=== PATIENT | male | born 1980 | race Two or more races ===

== ENCOUNTER 2019-09-13 12:22 | Inpatient (IN) | payer MEDICAID ==
[~2019-09-13] VITALS: Ht 182.9 cm; Wt 117.0 kg
[2019-09-13] MEDS ORDERED: VANCOMYCIN 1 GM in IV D5W 250 ML IV ONE (13:00)
[2019-09-13] MEDS ORDERED: IV NS 0.9% 1,000 ML BAG IV ONE (13:00)
[2019-09-13 13:08] LABS: BASOPHILS # (AUTO) 0.1 /CMM (0.0-0.2); BASOPHILS % (AUTO) 0.4 % (0.0-2.0); EOSINOPHILS % (AUTO) 0.4 % (0.0-6.0); HEMATOCRIT 36 % (39-51); HEMOGLOBIN 11.6 g/dL (13.5-17.5); LYMPHOCYTES # (AUTO) 1.4 /CMM (0.8-4.8); LYMPHOCYTES % (AUTO) 8.3 % (20.0-44.0); MEAN CORPUSCULAR HGB CONC 32 g/dl (31.0-36.0); MEAN CORPUSCULAR VOLUME 87 fL (80-96); MONOCYTES # (AUTO) 0.9 /CMM (0.1-1.30); MONOCYTES % (AUTO) 5.5 % (2.0-12.0); NEUTROPHILS # (AUTO) 14.1 /CMM (1.8-8.9); NEUTROPHILS % (AUTO) 85.4 % (43.0-81.0); PLATELET COUNT (AUTO) 447 /CMM (150-450); RED BLOOD CELL COUNT(AUTO) 4.14 MIL/uL (4.5-6.0); WHITE BLOOD COUNT (AUTO) 16.5 K/uL (4.3-11.0)
--- NOTE | 2019-09-13 13:10 | NUR ---
c/o worsening r foot pain, possible infection x 3 weeks. PT AAOX4, VSS. RR EVEN & UNLABORED. DENIES CP, SOB, DIZZINESS, N/V AT THIS TIME. PT SEEN & EVAL'D BY DR. LOMBARDO. MEDICATED ORDERED, PT FABRIZIO WELL. WILL CONT TO MONITOR.
[2019-09-13 13:22] LABS: ALANINE AMINOTRANSFERASE 16 U/L (12-78); ALBUMIN 2.8 g/dL (3.4-5.0); ALKALINE PHOSPHATASE 95 U/L (46-116); ASPARTATE AMINOTRANSFERASE 8 U/L (15-37); BILIRUBIN,DIRECT 0.2 mg/dL (0.0-0.2); BILIRUBIN,TOTAL 0.7 mg/dL (0.2-1.0); CALCIUM, SERUM 9.3 mg/dL (8.5-10.1); CARBON DIOXIDE 28 mmol/L (21-32); CHLORIDE 100 mmol/L (98-107); CREATININE 1.2 mg/dL (0.6-1.3); GLUCOSE 234 mg/dL (74-106); POTASSIUM 3.7 mmol/L (3.5-5.1); SODIUM SERUM 137 mmol/L (136-145); TOTAL PROTEIN, SERUM 9.1 g/dL (6.4-8.2); UREA NITROGEN, BLOOD 15 mg/dL (7-18)
--- NOTE | 2019-09-13 13:41 | NUR ---
CALLED NURSING SUP FOR M/S BED.
--- NOTE | 2019-09-13 13:42 | NUR ---
CALLED [facility].
--- NOTE | 2019-09-13 13:45 | NUR ---
NURSING SUP GAVE M/S BED 314-1.
[2019-09-13] MEDS ORDERED: NPH,100V SQ (13:49)
[2019-09-13] MEDS ORDERED: ONDANSETRON HCL/PF 4 MG/2 ML VIAL IVP PRN (14:00)
[2019-09-13] MEDS ORDERED: ACETAMINOPHEN 325 MG TABLET PO PRN (14:00)
[2019-09-13] MEDS ORDERED: ZOLPIDEM TARTRATE 5 MG TABLET PO PRN (14:00)
[2019-09-13] MEDS ORDERED: MAGNESIUM HYDROXIDE 30 ML UDC PO PRN (14:00)
[2019-09-13] MEDS ORDERED: DEXTROSE 50%-WATER 50 ML DISP.SYRIN IV PRN (14:00)
[2019-09-13] MEDS ORDERED: HYDROCODONE/APAP 5/325MG 1 EACH TABLET PO PRN (14:00)
[2019-09-13] MEDS ORDERED: MAG HYDROX/AL HYDROX/SIMETH 30 ML UDC PO PRN (14:00)
[2019-09-13] MEDS ORDERED: Z GUARD REMEDY 2 OZ OINT TP PRN (14:00)
--- NOTE | 2019-09-13 14:28 | NUR ---
REPORT GIVEN TO GABBY MORA FOR AVTAR.
[2019-09-13] MEDS ORDERED: FEE PK DOSING 1 MIN EA MC ONE (14:38)
--- NOTE | 2019-09-13 14:40 | NUR ---
RECEIVED PATIENT FROM ER, DIAGNOSIS OF RIGHT FOOT CELLULITIS POSSIBLE OSTEOMYELITIS. PATIENT IS A/OX4, ABLE TO MAKE NEEDS KNOWN. AMBULATORY, AMBULATE FROM GURNEY TO BED. NOT IN ANY FORM OF DISTRESS. TOLERATING ROOM AIR SATTING AT 98%. DENIED PAIN OR DISCOMFORT AT THIS TIME. REFUSED BODY CHECKED AND SKIN ASSESSMENT. PER PATIENT HE DOESNT HAVE ANY OTHER OPEN WOUNDS, JUST SWELLING AND FOUL ODOR ON RIGHT FOOT, PER PATIENT HE JUST HAD HIS RIGHT BIG TOE AMPUTATED ON JULY THIS 2018. PHOTOS TAKEN ON RIGHT FOOT. REFUSED TO WEAR HOSPITAL GOWN, STILL WEARING HIS REGULAR CLOTHES. SITUATED PATIENT IN THE ROOM. BELONGINGS CHECKED BY RUPAL SCHULTZ AND NOTED ON BELONGINGS FORM. TAUGHT HOW TO USE THE CALL LIGHT AND INSTRUCTED TO CALL FOR ASSISTANCE. KEPT PATIENT SAFE AND COMFORTABLE. BED IN LOW/LOCKED POSTIION, SIDERAIL UPX2, CALL LIGHT IN REACH. WILL CONTINUE TO MONITOR ACCORDINGLY.
[2019-09-13] MEDS ORDERED: CEFTRIAXONE 1 G in IV D5W 50 ML IV SCH (15:00)
[2019-09-13] MEDS: IV 1/2NS 1000 ML 1,000 ML IV PRN (15:54)
[2019-09-13 16:00] VITALS: BP 124/76
[2019-09-13] MEDS: BLOOD SUGAR DIAGNOSTIC 1 EACH STRIP IN SCH ×2 (17:36→21:25)
[2019-09-13] MEDS: INSULIN REGULAR, HUMAN 100 UNIT/ML 3 ML VIAL SQ PRN (17:37)
--- NOTE | 2019-09-13 19:10 | NUR ---
RN CLOSING NOTES PATIENT IN STABLE CONDITION. ALL NEEDS ATTENDED AND PROVIDED. ALL DUE MEDS GIVEN ORDERED. KEPT PATIENT SAFE AND COMFORTABLE. BED IN LOW/LOCKED POSITION, SIDERAILS UP X2., CALL LIGHT IN REACH. ENDORSED TO NIGHT RN FOR AVTAR.
--- NOTE | 2019-09-13 19:15 | NUR ---
MS RN OPENING NOTES Received patient in bed, watching TV, alert, oriented x 4. Breathing even and unlabored. Not in any distress. On room air. No complaints at this time. Peripheral IV infusing at 75mL/hr. Safety measures in place; call light within reach, bed in low, locked position. Will continue to monitor accordingly
[2019-09-13 20:00] VITALS: BP 108/60
--- NOTE | 2019-09-13 20:00 | NUR ---
RN NOTES SWAB FOR WOUND CULTURE OBTAINED
[2019-09-13] MEDS: CEFEPIME 1 GM in IV D5W 50 ML IV SCH (20:28)
[2019-09-13] MEDS: VANCOMYCIN 1.25 GM in IV D5W 250 ML IV SCH (21:06)
[2019-09-13] MEDS: *INSULIN REGULAR(HUMULIN R)HUM 100 UNIT/ML VIAL SQ PRN (21:58)
--- NOTE | 2019-09-13 21:58 | NUR ---
RN NOTES BSL- 158MG/DL. 2 UNITS INSULIN GIVEN PER SLIDING SCALE. SNACKS PROVIDED
--- NOTE | 2019-09-13 22:15 | NUR ---
RN NOTES U/A SAMPLE OBTAINED
[2019-09-14] MEDS: VANCOMYCIN 1.25 GM in IV D5W 250 ML IV SCH ×3 (04:30→21:00)
[2019-09-14] MEDS: BLOOD SUGAR DIAGNOSTIC 1 EACH STRIP IN SCH ×4 (06:31→21:24)
[2019-09-14] MEDS: INSULIN REGULAR, HUMAN 100 UNIT/ML 3 ML VIAL SQ PRN ×3 (06:35→17:32)
--- NOTE | 2019-09-14 06:42 | NUR ---
MS RN CLOSING NOTES PATIENT IN BED, WATCHING TV, ALERT, ORIENTED X 4. BREATHING EVEN AND UNLABORED. NOT IN ANY DISTRESS. ON ROOM AIR. PERIPHERAL IV INFUSING AT 75ML/HR. BSL IS 197MG/DL- 4 UNITS INSULIN GIVEN PER SLIDING SCALE. NO COMPLAINTS OF PAIN OR DISCOMFORT AT THIS TIME. NO ACUTE CHANGES OVERNIGHT. ALL NEEDS ATTENDED. SAFETY MEASURES IN PLACE; CALL LIGHT WITHIN REACH, BED IN LOW, LOCKED POSITION. WILL ENDORSE AVTAR TO ONCOMING RN.
--- NOTE | 2019-09-14 07:30 | NUR ---
RN MS NOTES PT IN BED, AWAKE, ALERT AND ORIENTED, NO COMPLAINT OF PAIN OR ANY DISCOMFORT, RESPIRATIONS NORMAL, IV FLUIDS INFUSING WELL, CALL LIGHT WITHIN REACH.
[2019-09-14 07:34] LABS: ALBUMIN 2.3 g/dL (3.4-5.0); BILIRUBIN,TOTAL 0.6 mg/dL (0.2-1.0); CALCIUM, SERUM 8.7 mg/dL (8.5-10.1); CREATININE 1.1 mg/dL (0.6-1.3); MAGNESIUM 1.6 mg/dL (1.8-2.4); PHOSPHORUS 3.3 mg/dL (2.5-4.9); POTASSIUM 3.6 mmol/L (3.5-5.1); TOTAL PROTEIN, SERUM 7.8 g/dL (6.4-8.2)
[2019-09-14 07:42] LABS: BASOPHILS % (AUTO) 0.6 % (0.0-2.0); EOSINOPHILS % (AUTO) 1.5 % (0.0-6.0); HEMATOCRIT 31 % (39-51); HEMOGLOBIN 10.3 g/dL (13.5-17.5); LYMPHOCYTES # (AUTO) 2.1 /CMM (0.8-4.8); MEAN CORPUSCULAR HGB CONC 33 g/dl (31.0-36.0); MEAN CORPUSCULAR VOLUME 86 fL (80-96); MONOCYTES # (AUTO) 0.7 /CMM (0.1-1.30); MONOCYTES % (AUTO) 8.7 % (2.0-12.0); NEUTROPHILS # (AUTO) 4.8 /CMM (1.8-8.9); NEUTROPHILS % (AUTO) 62.2 % (43.0-81.0); PLATELET COUNT (AUTO) 357 /CMM (150-450); WHITE BLOOD COUNT (AUTO) 7.7 K/uL (4.3-11.0)
[2019-09-14 08:00] VITALS: BP 133/76
[2019-09-14] MEDS: CEFEPIME 1 GM in IV D5W 50 ML IV SCH ×2 (08:22→20:05)
[2019-09-14 08:56] LABS: ABG BASE EXCESS -0.6 mmol/L; ABG PCO2 37.7 mmHg (35.0-45.0); ABG PH 7.416 (7.350-7.450); ABG PO2 86.2 mmHg (75.0-100.0); AaDO2 18.4 mmHg; COHb 0.6 % (0.5-1.5); MetHb 0.3 % (0.0-1.5); O2Hb 95.1 % (94.0-97.0); SITE, ABG Right Radial
--- NOTE | 2019-09-14 09:34 | NUR ---
WOUND CARE CONSULT: PT PRESENTS WITH RT FOOT SURGICAL SITE WITH FOUL DRAINAGE (RED/BROWN), PRESENT ON ADMISSION. RECOMMENDATIONS MADE FOR WOUND CARE TIL SEEN BY DPM. DR FERRER NOTIFIED OF DPM CONSULT REQUEST. PT IS AMBULATORY AND CONTINENT. WILL SEE PRN. Addendum: 09/14/19 at 0936 by APOLINAR MATOS WNDNU Amended: Links added.
[2019-09-14] MEDS: Magnesium 1GM/D5W 100ML PREMIX 100 ML IV SCH ×2 (10:41→11:52)
[2019-09-14] MEDS ORDERED: LIDOCAINE 1% INJ 50 ML MDV IJ ONE (11:00)
--- NOTE | 2019-09-14 12:05 | NUR ---
RN MS NOTES PT S/P INCISIONAL DEBRIDEMENT OF THE RIGHT FOOT BY DR. CAMPOS, DONE AT BEDSIDE, TOLERATED PROCEDURE WELL.
--- NOTE | 2019-09-14 13:30 | NUR ---
Social service consult requested by Dr. Borrero for homelessness. Pt. is a 38 year old male who was admitted to [facility] for Right food infection. SW met with the pt. bedside. Pt. is alert and oriented x 4. Pt. states he has been living in his car since he came back from [place] 2 weeks ago. Prior to that, pt. was residing with family in [place] but got kicked out. Pt. is not assisted appropriate at this time since pt. will require 6 weeks on IV antibiotics. owner manager Kate is working on placement. Pt. denies alcohol and drug use. Pt. smokes up to 7 cigarettes per day. No other social service needs are requested at this time.
--- NOTE | 2019-09-14 15:02 | NUR ---
RN NOTES PATIENT LEFT TO MRI AT 2:57 BY WHEELCHAIR.
[2019-09-14 16:00] VITALS: BP 133/84
[2019-09-14] MEDS: LACTOBACILLUS RHAMNOSUS GG 1 EACH CAP.SPRINK PO SCH (16:33)
[2019-09-14] MEDS: IV 1/2NS 1000 ML 1,000 ML IV PRN (18:24)
--- NOTE | 2019-09-14 18:31 | NUR ---
RN CLOSING NOTES PT IS LAYING IN BED AT THIS TIME. PT IS COMFORTABLE AND PAIN FREE. PT ON ROOM AIR, NO SIGNS OF DISTRESS. PT HAD DINNER AND RECEIVED INSULIN PER SLIDING SCALE ORDERED. PT HAD MRI AND XR TODAY FOR HIS WOUND DUE TO AMPUTATED TOE ON HIS LEFT FOOT. WOUND DRESSING DONE PER MD ORDER. DRESSING CLEAN AND INTACT. PATIENT TOLERATED WELL.
--- NOTE | 2019-09-14 19:10 | NUR ---
MS RN OPENING NOTES RECEIVED PATIENT IN BED, ALERT, ORIENTED X 4. BREATHING EVEN AND UNLABORED. NOT IN ANY DISTRESS. ON ROOM AIR. NO COMPLAINTS AT THIS TIME. PERIPHERAL IV INFUSING AT 75ML/HR. SAFETY MEASURES IN PLACE; CALL LIGHT WITHIN REACH, BED IN LOW, LOCKED POSITION. WILL CONTINUE TO MONITOR ACCORDINGLY
[2019-09-14 20:00] VITALS: BP 141/85
--- NOTE | 2019-09-14 20:45 | NUR ---
RN NOTES RECEIVED A CALL FROM [facility] RE RESULT OF RIGHT FOOT MRI. BETH FERRER DPM INFORMED.
[2019-09-14] MEDS: *INSULIN REGULAR(HUMULIN R)HUM 100 UNIT/ML VIAL SQ PRN (21:33)
--- NOTE | 2019-09-14 21:33 | NUR ---
RN NOTES BSL- 206MG/DL. 4 UNITS OF INSULIN GIVEN ORDERED. SNACKS PROVIDED
[2019-09-15] MEDS: VANCOMYCIN 1.25 GM in IV D5W 250 ML IV SCH ×2 (04:10→13:35)
[2019-09-15] MEDS: BLOOD SUGAR DIAGNOSTIC 1 EACH STRIP IN SCH ×4 (06:32→21:14)
[2019-09-15] MEDS: INSULIN REGULAR, HUMAN 100 UNIT/ML 3 ML VIAL SQ PRN ×3 (06:39→17:27)
--- NOTE | 2019-09-15 06:40 | NUR ---
MS RN CLOSING NOTES PATIENT IN BED, WATCHING TV, ALERT, ORIENTED X 4. BREATHING EVEN AND UNLABORED. NOT IN ANY DISTRESS. ON ROOM AIR. PERIPHERAL IV INFUSING AT 75ML/HR. BSL IS 205MG/DL- 8 UNITS OF INSULIN GIVEN PER SLIDING SCALE. NO COMPLAINTS OF PAIN OR DISCOMFORT AT THIS TIME. NO ACUTE CHANGES OVERNIGHT. ALL NEEDS ATTENDED. SAFETY MEASURES IN PLACE; CALL LIGHT WITHIN REACH, BED IN LOW, LOCKED POSITION. WILL ENDORSE AVTAR TO ONCOMING RN.
[2019-09-15 06:47] LABS: CALCIUM, SERUM 8.7 mg/dL (8.5-10.1); CREATININE 1.1 mg/dL (0.6-1.3); MAGNESIUM 1.9 mg/dL (1.8-2.4); POTASSIUM 3.7 mmol/L (3.5-5.1)
--- NOTE | 2019-09-15 07:30 | NUR ---
RN MS NOTES PT IN BED, AWAKE, ALERT AND ORIENTED, NO COMPLAINT AT THIS TIME, RESPIRATIONS NORMAL, CALL LIGHT WITHIN REACH, NO BLEEDING OR DRAINAGE NOTED TO RIGHT FOOT WOUND, MAINTAINED A QUIET ENVIRONMENT TO PROMOTE REST.
[2019-09-15 08:00] VITALS: BP 125/81
[2019-09-15] MEDS: CEFEPIME 1 GM in IV D5W 50 ML IV SCH ×2 (08:30→21:08)
[2019-09-15] MEDS: LACTOBACILLUS RHAMNOSUS GG 1 EACH CAP.SPRINK PO SCH ×2 (08:30→17:33)
--- NOTE | 2019-09-15 12:14 | NUR ---
RN MS NOTES PT IN BED, EATING LUNCH, NO COMPLAINT AT THIS TIME, WOUND TREATMENT AND DRESSING CHANGE DONE TO RIGHT FOOT WOUND, TOLERATED WELL, IV FLUIDS INFUSING WELL.
[2019-09-15 16:00] VITALS: BP 151/89
--- NOTE | 2019-09-15 18:18 | NUR ---
RN MS NOTES PT IN BED, AWAKE, ALERT AND ORIENTED, NO COMPLAINT OF PAIN OR ANY DISCOMFORT, NOT IN DISTRESS, SPEAKING ON THE PHONE, IV FLUIDS INFUSING WELL, PM MEDS GIVEN ORDERED, ALL NEEDS ATTENDED.
--- NOTE | 2019-09-15 19:10 | NUR ---
CHANGE OF SHIFT REPORT Patient in bed, awake. Right foot wound dressing clean and dry, denies pain. IVF infusing. Instruction to use call for assistance, verbalized understanding.
[2019-09-15 20:00] VITALS: BP 148/78
[2019-09-15 20:59] VITALS: BP 148/78
[2019-09-15] MEDS ORDERED: VANCOMYCIN 1 GM in IV D5W 250 ML IV SCH (21:00)
[2019-09-15] MEDS: IV 1/2NS 1000 ML 1,000 ML IV PRN (21:07)
[2019-09-15] MEDS: *INSULIN REGULAR(HUMULIN R)HUM 100 UNIT/ML VIAL SQ PRN (21:19)
--- NOTE | 2019-09-16 05:40 | NUR ---
END OF SHIFT REPORT Patient in bed, stable oxygen saturation on RA. Right foot dressing changed this shift, denies pain. WBAT right heeo Addendum: 09/16/19 at 0623 by FAMILIA HURT RN CONTINUE END OF SHIFT REPORT BELOW: WBAT right heel in surgical shoe per Podiatry. IVF infusing, IV antibiotic as scheduled, Afebrile overnight.
[2019-09-16 06:32] LABS: CALCIUM, SERUM 8.8 mg/dL (8.5-10.1); POTASSIUM 3.9 mmol/L (3.5-5.1)
--- NOTE | 2019-09-16 07:30 | NUR ---
MS RN OPENING NOTES RECEIVED PATIENT IN BED RESTING COMFORTABLY IN MODERATE HIGH BACK REST, ALERT, ORIENTED X 4. BREATHING EVEN AND UNLABORED. NOT IN ANY DISTRESS NOTED AT THIS TIME. ON ROOM AIR. NO COMPLAINTS AT THIS TIME. IV FLUIDS ON LEFT HAND #22 INFUSING AT 75ML/HR. PATENT AND INTACT. SAFETY MEASURES IN PLACE; CALL LIGHT WITHIN REACH, BED IN LOW, LOCKED POSITION. WILL CONTINUE TO MONITOR ACCORDINGLY.
[2019-09-16] MEDS: BLOOD SUGAR DIAGNOSTIC 1 EACH STRIP IN SCH ×4 (07:32→21:44)
[2019-09-16] MEDS: INSULIN REGULAR, HUMAN 100 UNIT/ML 3 ML VIAL SQ PRN ×3 (07:35→16:35)
[2019-09-16 08:00] VITALS: BP 121/69
[2019-09-16] MEDS: CEFEPIME 1 GM in IV D5W 50 ML IV SCH ×2 (08:12→21:37)
[2019-09-16] MEDS: LACTOBACILLUS RHAMNOSUS GG 1 EACH CAP.SPRINK PO SCH ×2 (08:12→16:11)
[2019-09-16] MEDS: IV 1/2NS 1000 ML 1,000 ML IV PRN (13:28)
[2019-09-16 16:00] VITALS: BP 139/89
--- NOTE | 2019-09-16 19:00 | NUR ---
MS RN CLOSING NOTES PATIENT IN BED RESTING COMFORTABLY IN MODERATE HIGH BACK REST, ALERT, ORIENTED X 4. BREATHING EVEN AND UNLABORED. NOT IN ANY DISTRESS NOTED THROUGHOUT THE SHIFT. ON ROOM AIR. IV FLUIDS ON LEFT HAND #22 INFUSING AT 75ML/HR. PATENT AND INTACT. SAFETY MEASURES IN PLACE; CALL LIGHT WITHIN REACH, BED IN LOW, LOCKED POSITION. WILL ENDORSE TO AWNINGS MECHANIC NURSE FOR AVTAR.
--- NOTE | 2019-09-16 19:15 | NUR ---
MS/RN NOTES RECEIVED PT. LYING IN BED. PT. IS AWAKE, ALERT AND ORIENTED X4. BREATHING EVEN AND UNLABORED ON ROOM AIR. NO SOB, RESPIRATORY DISTRESS OR COMPLAINTS OF PAIN NOTED AT THIS TIME. PT. WITH LEFT HAND 22 GAUGE PERIPHERAL IV PRESENT, PATENT AND INTACT ADMINISTERING TO PT. 1/2 NS @ 75 ML/HR. BED LOCKED AND IN LOWEST POSITION, SIDE RAILS UP X2, CALL LIGHT WITHIN REACH, WILL CONTINUE TO MONITOR.
[2019-09-16 20:00] VITALS: BP 141/92
[2019-09-16] MEDS: *INSULIN REGULAR(HUMULIN R)HUM 100 UNIT/ML VIAL SQ PRN (21:45)
[2019-09-17] MEDS: INSULIN REGULAR, HUMAN 100 UNIT/ML 3 ML VIAL SQ PRN ×3 (06:33→18:18)
[2019-09-17] MEDS: BLOOD SUGAR DIAGNOSTIC 1 EACH STRIP IN SCH ×4 (06:33→22:45)
--- NOTE | 2019-09-17 06:57 | NUR ---
MS/RN NOTES PT. IS LYING IN BED, AWAKE, ALERT AND ORIENTED X4. BREATHING EVEN AND UNLABORED ON ROOM AIR. NO SOB, RESPIRATORY DISTRESS OR COMPLAINTS OF PAIN NOTED AT THIS TIME AND THROUGHOUT SHIFT. NO S/S OF HYPO/HYPERGLYCEMIA NOTED AT THIS TIME AND THROUGHOUT SHIFT. PT. WITH LEFT HAND 22 GAUGE PERIPHERAL IV PRESENT, PATENT AND INTACT ADMINISTERING TO PT. 1/2 NS @ 75 ML/HR. WOUND CARE PROVIDED. ALL PT. NEEDS MET. BED LOCKED AND IN LOWEST POSITION, SIDE RAILS UP X2, CALL LIGHT WITHIN REACH, WILL ENDORSE TO DAYSHIFT NURSE FOR CONTINUITY OF CARE.
[2019-09-17 07:09] LABS: CALCIUM, SERUM 8.9 mg/dL (8.5-10.1); CREATININE 0.9 mg/dL (0.6-1.3); POTASSIUM 3.9 mmol/L (3.5-5.1)
[2019-09-17 07:54] VITALS: BP 131/92
--- NOTE | 2019-09-17 08:00 | NUR ---
MS RN RECEIVED ON BED, AWAKE,ALERT,ORIENTED X4,NOT IN ANY FORM OF DISTRESS NOTED, RESPIRATIONS EVEN AND UNLABORED,NO SOB NOTED, LUNGS ARE CLEAR,ABDOMEN, SOFT,POSITIVE BOWEL SOUNDS,DENIES PAIN AT THIS TIME.
--- NOTE | 2019-09-17 09:00 | NUR ---
MS PIERRE BREAKFAST SERVED,DUE MEDS GIVEN,TOLERATED WELL.
--- NOTE | 2019-09-17 09:10 | NUR ---
MS RN WAS SEEN BY DR. HAGEN W/ BRET FOR PICCLINE INSERTION.
[2019-09-17] MEDS: LACTOBACILLUS RHAMNOSUS GG 1 EACH CAP.SPRINK PO SCH ×2 (09:44→18:09)
[2019-09-17] MEDS: CEFEPIME 1 GM in IV D5W 50 ML IV SCH ×2 (09:47→20:58)
[2019-09-17] MEDS: DAKINS QUARTER STRENGTH (0.125%) 480 ML BOTTLE TOP SCH (09:52)
--- NOTE | 2019-09-17 13:00 | NUR ---
MS RN PICCLINE INSERTION HELD AT THIS TIME, WILL WAIT FOR NERA.
[2019-09-17 16:00] VITALS: BP 122/82
[2019-09-17] MEDS ORDERED: FEE PK DOSING 1 MIN EA MC ONE (16:19)
--- NOTE | 2019-09-17 18:00 | NUR ---
ms rn dressing to right foot changed, all needs attended.
[2019-09-17] MEDS: VANCOMYCIN 1.25 GM in IV D5W 250 ML IV SCH (18:09)
[2019-09-17] MEDS: IV 1/2NS 1000 ML 1,000 ML IV PRN (18:14)
--- NOTE | 2019-09-17 19:45 | NUR ---
RN NOTES RECEIVED PATIENT IN BED RESTING COMFORTABLY IN MODERATE HIGH BACK REST, ALERT, ORIENTED X 4. BREATHING EVEN AND UNLABORED. NOT IN ANY DISTRESS NOTED AT THIS TIME. ON ROOM AIR. NO COMPLAINTS AT THIS TIME. IV FLUIDS ON LEFT HAND #22 INFUSING AT 75ML/HR. PATENT AND INTACT. SAFETY MEASURES IN PLACE; CALL LIGHT WITHIN EASY REACH, BED IN LOW, LOCKED POSITION. WILL CONTINUE TO MONITOR ACCORDINGLY.
[2019-09-17 20:00] VITALS: BP 122/82
[2019-09-17 20:09] VITALS: BP 122/82
[2019-09-17] MEDS ORDERED: LINEZOLID 600 MG TABLET PO SCH (21:00)
[2019-09-17] MEDS: *INSULIN REGULAR(HUMULIN R)HUM 100 UNIT/ML VIAL SQ PRN (22:48)
[2019-09-18] MEDS: VANCOMYCIN 1.25 GM in IV D5W 250 ML IV SCH ×4 (01:27→18:13)
--- NOTE | 2019-09-18 06:35 | NUR ---
RN NOTES ALL NEEDS ATTENDED AND MET, ABLE TO REST AND SLEPT AT INTERVALS, KEPT CLEAN DRY AND COMFORTABLE, IV ACCESS INTACT AND PATENT, CALL LIGHT WITH IN EASY REACH, WILL ENDORSE TO AM NURSE FOR CONTINUITY OF CARE.
[2019-09-18] MEDS: BLOOD SUGAR DIAGNOSTIC 1 EACH STRIP IN SCH ×4 (06:44→21:40)
[2019-09-18] MEDS: INSULIN REGULAR, HUMAN 100 UNIT/ML 3 ML VIAL SQ PRN ×3 (06:45→17:06)
--- NOTE | 2019-09-18 07:25 | NUR ---
MS RN OPENING NOTES RECEIVED PT IN BED, AWAKE. A/O X4. PT TOLERATING RA, WITH NO ACUTE RESPIRATORY DISTRESS NOTED. PT DENIES ANY PAIN OR DISCOMFORT AT THIS TIME. ALSO DENIES, CONCERNS OR QUESTIONS. IVF 1/2 NS AT 75ML/HR TO LEFT HAND G22, INTACT AND FLUID INFUSING WELL. PT KEPT COMFORTABLE. CALL LIGHT KEPT WITHIN REACH. PT'S BED IN LOWEST, LOCKED POSITION WITH SRX3. WILL CONTINUE PLAN OF CARE.
[2019-09-18 08:00] VITALS: BP 127/86
[2019-09-18] MEDS: CEFEPIME 1 GM in IV D5W 50 ML IV SCH ×2 (08:08→21:22)
[2019-09-18] MEDS: DAKINS QUARTER STRENGTH (0.125%) 480 ML BOTTLE TOP SCH (08:52)
[2019-09-18] MEDS: LACTOBACILLUS RHAMNOSUS GG 1 EACH CAP.SPRINK PO SCH ×2 (08:52→16:07)
[2019-09-18 09:20] LABS: CALCIUM, SERUM 9.5 mg/dL (8.5-10.1); CREATININE 1.1 mg/dL (0.6-1.3); POTASSIUM 4.2 mmol/L (3.5-5.1)
--- NOTE | 2019-09-18 09:43 | NUR ---
MS RN NOTES PT SIGNED CONSENT FOR PICC LINE INSERTION. PT MADE AWARE PICC LINE NURSE WILL COME AROUND 1230 TODAY.
--- NOTE | 2019-09-18 10:30 | NUR ---
MS RN NOTES ELIZABETO THROUGH RESULTED 23. DOSE THIS MORNING HELD. SCANNED MED EARLY, AND UNDID BUT DIDN'T WENT THROUGH. RN FORGOT TO RECHECK IF IT WAS REALLY DOCUMENTED AT THAT MOMENT. TO CLARIFY. VANCO SCHEDULED AT 9AM NOT GIVEN.
--- NOTE | 2019-09-18 13:15 | NUR ---
MS RN NOTES PICC LINE TO BRENDAN WITH 2LUMENS PLACED. PER PICCLINE NURSE, NO NEED FOR CXRAY. SITE FLUSHED AND HAS BLOOD RETURN. WILL CONTINUE TO MONITOR.
[2019-09-18 16:00] VITALS: BP 130/79
--- NOTE | 2019-09-18 18:32 | NUR ---
MS RN CLOSING NOTES PT IN BED, AWAKE. A/O X4. PT TOLERATING RA, WITH NO ACUTE RESPIRATORY DISTRESS NOTED. PT DENIES ANY PAIN OR DISCOMFORT AT THIS TIME. IVF 1/2 NS AT 75ML/HR TO [facility] PICC WITH 2LUMENS, BUT PT REFUSED ON GOING IVF, ON GOING IV VANCO FOR 2 HOURS AT THIS TIME. PT KEPT COMFORTABLE. ALL NEEDS AND CARE ATTENDED AND PROVIDED.CALL LIGHT KEPT WITHIN REACH. PT'S BED IN LOWEST, LOCKED POSITION WITH SRX3. WILL ENDORSE TO INCOMING FRUIT TESTER NURSE FOR AVTAR.
--- NOTE | 2019-09-18 19:30 | NUR ---
MS RN OPENING NOTES RECEIVED PATIENT FROM MORNING SHIFT, ALERT AND ORIENTED X 4. VERBALLY RESPONSIVE AND ABLE TO FOLLOW DIRECTIONS. BREATHING REGULAR AND UNLABORED ON ROOM AIR. RIGHT UPPER ARM PICC LINE INTACT AND PATENT, INFUSING WELL WITH NO BLEEDING OR S/S OF INFECTION NOTED. NO COMPLAINTS OF PAIN/DISCOMFORT REPORTED OF THE TIME. BODY ASSESSMENT DONE, S/P RIGHT 1ST TOE AMPUTATION, WOUND DRESSING INTACT, CLEAN AND DRY. BED LOW AND LOCKED ON SEMI FOWLERS POSITION. CALL LIGHT AND OTHER BELONGINGS IN REACH. WILL CONTINUE TO MONITOR.
[2019-09-18 19:59] VITALS: BP 135/82
[2019-09-18] MEDS: *INSULIN REGULAR(HUMULIN R)HUM 100 UNIT/ML VIAL SQ PRN (21:42)
--- NOTE | 2019-09-18 21:50 | NUR ---
MS RN NOTES BS 160mg/dl, 3UNITS GIVEN SQ. WILL CONTINUE TO MONITOR FOR S/S OF HYPO/HYPERGLYCEMIA.
[2019-09-18 22:00] VITALS: BP 135/82
[2019-09-18] MEDS ORDERED: IV D5/ 0.9% NACL 1,000 ML IV PRN (22:00)
--- NOTE | 2019-09-18 23:40 | NUR ---
MS RN NOTES NOTIFY IP LITIGATION PARALEGAL JOSSIE REGARDING PATIENT UNDER GOING SURGERY TOMORROW AFTERNOON. EXPLAINED THAT PATIENT WILL BE NPO POST MIDNIGHT AND DIABETIC. ORDERED TO CHANGE IV FLUIDS TO D5NS AT 75CC/HR NOTED AND CARRIED OUT. PATIENT MADE AWARE.
[2019-09-19] MEDS: VANCOMYCIN 1.25 GM in IV D5W 250 ML IV SCH ×2 (05:22→18:32)
--- NOTE | 2019-09-19 05:30 | NUR ---
MS RN NOTES WOUND TREATMENT PROVIDED, PHOTO OF RIGHT FOOT WOUND ATTACHED TO CHART.
[2019-09-19] MEDS: BLOOD SUGAR DIAGNOSTIC 1 EACH STRIP IN SCH ×4 (06:31→21:40)
[2019-09-19] MEDS: INSULIN REGULAR, HUMAN 100 UNIT/ML 3 ML VIAL SQ PRN ×3 (06:32→17:07)
[2019-09-19 06:33] LABS: BASOPHILS # (AUTO) 0.1 /CMM (0.0-0.2); BASOPHILS % (AUTO) 0.8 % (0.0-2.0); EOSINOPHILS % (AUTO) 1.7 % (0.0-6.0); HEMATOCRIT 31 % (39-51); LYMPHOCYTES # (AUTO) 2.7 /CMM (0.8-4.8); LYMPHOCYTES % (AUTO) 33.4 % (20.0-44.0); MEAN CORPUSCULAR HGB CONC 33 g/dl (31.0-36.0); MEAN CORPUSCULAR VOLUME 89 fL (80-96); MONOCYTES # (AUTO) 0.7 /CMM (0.1-1.30); MONOCYTES % (AUTO) 8.2 % (2.0-12.0); NEUTROPHILS # (AUTO) 4.5 /CMM (1.8-8.9); NEUTROPHILS % (AUTO) 55.9 % (43.0-81.0); PLATELET COUNT (AUTO) 311 /CMM (150-450); RED BLOOD CELL COUNT(AUTO) 3.42 MIL/uL (4.5-6.0); WHITE BLOOD COUNT (AUTO) 8.1 K/uL (4.3-11.0)
--- NOTE | 2019-09-19 06:35 | NUR ---
MS RN NOTES BS 187mg/dl, 4UNITS GIVEN SQ. WILL CONTINUE TO MONITOR FOR S/S OF HYPO/HYPERGLYCEMIA.
--- NOTE | 2019-09-19 06:40 | NUR ---
MS RN CLOSING NOTES PATIENT IN BED ALERT AND ORIENTED X 4. VERBALLY RESPONSIVE AND ABLE TO FOLLOW DIRECTIONS. BREATHING REGULAR AND UNLABORED ON ROOM AIR. RIGHT UPPER ARM PICC LINE INTACT AND PATENT, INFUSING WELL WITH NO BLEEDING OR S/S OF INFECTION OBSERVED. NO COMPLAINTS OF PAIN/DISCOMFORT REPORTED THE WHOLE SHIFT. MAINTAINED ON NPO FOR SURGERY THIS AFTERNOON. CONSENTS SIGNED AND WITNESSED. CHECKLIST STARTED, TO UPDATE BY MORNING SHIFT. BED LOW AND LOCKED ON SEMI FOWLERS POSITION. CALL LIGHT AND OTHER BELONGINGS IN REACH. WILL ENDORSE TO MORNING SHIFT FOR AVTAR.
--- NOTE | 2019-09-19 07:33 | NUR ---
MS RN NOTES PATIENT AWAKE AND RESTING IN BED, SUPINE POSITION. ALERT & ORIENTED X 4. PATIENT NPO. PICC LINE PRESENT ON RIGHT FOREARM WITH D5NS RUNNING AT 75 ML/HR. PICC LINE INTACT AND DRESSING DRY.DRESSING ON RIGHT FOOT DRY AND INTACT. NO SIGN OF ACUTE RESPIRATORY DISTRESS AND NO COMPLAINTS OF PAIN. CALL LIGHT WITHIN PATIENT'S REACH. WILL CONTINUE TO MONITOR.
[2019-09-19 08:00] VITALS: BP 133/81
[2019-09-19] MEDS: CEFEPIME 1 GM in IV D5W 50 ML IV SCH ×2 (08:07→21:04)
[2019-09-19 08:08] LABS: CALCIUM, SERUM 8.9 mg/dL (8.5-10.1); CREATININE 1.1 mg/dL (0.6-1.3); POTASSIUM 4.6 mmol/L (3.5-5.1)
[2019-09-19 08:21] VITALS: BP 133/81
[2019-09-19] MEDS: LACTOBACILLUS RHAMNOSUS GG 1 EACH CAP.SPRINK PO SCH ×2 (09:25→17:03)
[2019-09-19] MEDS: DAKINS QUARTER STRENGTH (0.125%) 480 ML BOTTLE TOP SCH (10:23)
[2019-09-19] MEDS ORDERED: GADOTERIDOL 279.3 MG/ML VIAL IV ONE (11:58)
[2019-09-19 16:00] VITALS: BP 133/81
--- NOTE | 2019-09-19 18:14 | NUR ---
MS RN CLOSING NOTES PATIENT AWAKE RESTING IN BED. ALERT & ORIENTED X 4. NO COMPLAINTS OF ANY PAIN OR ACUTE RESPIRATORY DISTRESS. DRESSING ON RIGHT FOOT DRY AND INTACT. DISCHARGE ORDERS IN PLACE, AWAITING NOTIFICATION OF PLACEMENT AND/OR CLINIC FOLLOW UP PLANS. CALL LIGHT WITHIN PATIENTS REACH. WILL ENDORSE PLAN OF CARE TO FILM AND VIDEO GRAPHICS DESIGNER NURSE.
[2019-09-19 20:10] VITALS: BP 125/84
[2019-09-19 20:27] VITALS: BP 107/67
[2019-09-19 20:31] VITALS: BP 125/84
[2019-09-19] MEDS: *INSULIN REGULAR(HUMULIN R)HUM 100 UNIT/ML VIAL SQ PRN (21:42)
--- NOTE | 2019-09-19 21:45 | NUR ---
MS RN NOTES BS 202mg/dl, 4UNITS GIVEN SQ. WILL CONTINUE TO MONITOR FOR S/S OF HYPO/HYPERGLYCEMIA.
--- NOTE | 2019-09-20 02:00 | NUR ---
MS RN NOTES DRUG REGULATORY AFFAIRS SPECIALIST JOSSIE NOTIFIED REGARDING PATIENT POSSIBLE EXPOSURE TO MENINGITIS WITH PREVIOUS ROOM MATE. REPORTED THAT HE'S CURRENTLY ON TWO IV ATB'S VANCOMYCIN AND CEFIPIME. PER DRUG REGULATORY AFFAIRS SPECIALIST JOSSIE CONSULT INFECTIOUS DSE.
[2019-09-20] MEDS: VANCOMYCIN 1.25 GM in IV D5W 250 ML IV SCH (05:27)
[2019-09-20] MEDS: BLOOD SUGAR DIAGNOSTIC 1 EACH STRIP IN SCH ×4 (06:32→21:20)
[2019-09-20] MEDS: INSULIN REGULAR, HUMAN 100 UNIT/ML 3 ML VIAL SQ PRN ×3 (06:33→18:21)
--- NOTE | 2019-09-20 06:35 | NUR ---
MS RN NOTES BS 169mg/dl, 4UNITS GIVEN SQ. WILL CONTINUE TO MONITOR FOR S/S OF HYPO/HYPERGLYCEMIA.
--- NOTE | 2019-09-20 06:40 | NUR ---
MS RN CLOSING NOTES PATIENT IN BED ALERT AND ORIENTED X 4. VERBALLY RESPONSIVE AND ABLE TO FOLLOW DIRECTIONS. BREATHING REGULAR AND UNLABORED ON ROOM AIR. RIGHT UPPER ARM PICC LINE INTACT AND PATENT, INFUSING WELL WITH NO BLEEDING OR S/S OF INFECTION OBSERVED. NO COMPLAINTS OF PAIN/DISCOMFORT REPORTED THE WHOLE SHIFT. BED LOW AND LOCKED ON SEMI FOWLERS POSITION. CALL LIGHT AND OTHER BELONGINGS IN REACH. WILL ENDORSE TO MORNING SHIFT FOR AVTAR.
[2019-09-20 08:00] VITALS: BP 123/77
--- NOTE | 2019-09-20 08:00 | NUR ---
MS RN OPENING NOTES Received Patient awake and resting in bed. A/O x 4. VS stable with no acute distress. Breathing even and unlabored on room air with no respiratory distress. Denies pain. BRENDAN PICC line clean, intact and patent. Wound dressing clean and intact. Safety precautions in place. Bed locked and set to lowest position with side rails x 2 up. All needs rendered at this time. Call light within reach. Will continue to monitor.
[2019-09-20 08:39] LABS: CALCIUM, SERUM 9.2 mg/dL (8.5-10.1); CREATININE 1.1 mg/dL (0.6-1.3); POTASSIUM 4.5 mmol/L (3.5-5.1)
[2019-09-20] MEDS: LACTOBACILLUS RHAMNOSUS GG 1 EACH CAP.SPRINK PO SCH ×2 (09:48→16:43)
[2019-09-20] MEDS: DAKINS QUARTER STRENGTH (0.125%) 480 ML BOTTLE TOP SCH (09:50)
[2019-09-20] MEDS: CEFEPIME 1 GM in IV D5W 50 ML IV SCH ×2 (09:50→21:20)
--- NOTE | 2019-09-20 13:59 | NUR ---
MS RN NOTES Followed up with Dr. Salazar in regards to Patients meningitis exposure on 09/19/19 for possible orders. Per MD, follow up with Infectious Disease. Will continue to follow up.
--- NOTE | 2019-09-20 14:00 | NUR ---
MS RN NOTES Patient seen by Mer THOMPSON for right foot wound debridement. Patient tolerated well. Patient in stable condition. Will continue to monitor.
--- NOTE | 2019-09-20 14:07 | NUR ---
MS RN NOTES Followed up with Ana VICENTE from Infectious Disease in regards to Patients exposure to meningitis on 09/19/19 for possible new orders. Per GOVERNMENT SERVICE EXECUTIVE, follow up with employee health. Will continue to follow up.
--- NOTE | 2019-09-20 14:17 | NUR ---
Pail Tester consult requested by Dr. Alex Perez for homelessness. The pt. is a 38 year old Male in [facility] for evaluation of right foot infection as he had a right big toe 1 month ago per EMR . Upon Motor And Chassis Inspector consultation the pt. presented sitting on his bed talking on the phone. The pt. was alert and oriented x4 and was receptive to speaking with Motor And Chassis Inspector. The pt. remained calm and cooperative throughout interview. Patient denies SI/HI and denies hallucinations at this time. Per pt. he has no Hx or current ETOH/substance use. Per pt., him and his girlfriend, Maria Isabel May have been experiencing homelessness sine 07/2019 and inquired about shelters. Per pt. misty and Maria Isabel have been living in his car since July. SW provided pt. with list of [facility] and pt. was agreeable to go to a winter long term. SW offered pt. a tap card to get to [facility] location. However, pt. expressed that he has his own car and declined tap card. SW offered pt. clothing but pt. declined. SW provided pt. with location of [facility] Social Security office and contact information so he may apply for SSI. Patient expressed gratitude. The patient signed the homeless waiver form and it was put in pt. chart. CINDI provided pt. with resource packet that include: [facility] [[address] [facility], ]; [facility] [[address] [place] [address]]; [facility] located at [address] ; [place], [address] [place] ; [facility] [place], [address] [place] ; [facility] Homeless Resource Directory which includes food stamps, transitional housing, showers and hot meals etc; Mental Health clinics such as [facility] ; [facility] ; Health clinics;Alcohol treatment centers such as [facility], ; [facility] Substance Abuse Hotline and [facility] .
--- NOTE | 2019-09-20 14:58 | NUR ---
MS RN NOTES Followed up with Dora VICENTE in regards to Patients exposure to meningitis on 09/19/19. Per STONE DRILLER HELPER, "he is on abx already." NNO at this time. Patient in stable condition. Will continue to monitor.
[2019-09-20 16:00] VITALS: BP 126/86
[2019-09-20] MEDS: VANCOMYCIN 1 GM in IV D5W 250 ML IV SCH (17:26)
--- NOTE | 2019-09-20 19:14 | NUR ---
MS RN CLOSING NOTES Patient awake and resting in bed. A/O x 4. VS stable with no acute distress. Breathing even and unlabored on room air with no respiratory distress. Denies pain. BRENDAN PICC line clean, intact and patent with IV ABX running at this time. Wound dressing clean and intact s/p wound debridement. Safety precautions in place. Bed locked and set to lowest position with side rails x 2 up. All needs rendered at this time. Call light within reach. Will endorse plan of care to oncoming shift.
--- NOTE | 2019-09-20 19:43 | NUR ---
MS RN NOTES PATIENT ASLEEP IN BED WITH NO DISTRESS NOTED. CALL LIGHT WITHIN REACH. BRENDAN PICC LINE INTACT AND PATENT. BED IN LOW LOCK SETTING. ROOM FREE OF CLUTTER AND ALL BELONGINGS KEPT NEAR BEDSIDE. WILL CONTINUE TO MONITOR.
[2019-09-20 20:37] VITALS: BP 125/84
[2019-09-20] MEDS: *INSULIN REGULAR(HUMULIN R)HUM 100 UNIT/ML VIAL SQ PRN (21:33)
[2019-09-21] MEDS: VANCOMYCIN 1 GM in IV D5W 250 ML IV SCH ×2 (05:01→17:47)
[2019-09-21] MEDS: INSULIN REGULAR, HUMAN 100 UNIT/ML 3 ML VIAL SQ PRN ×3 (06:04→21:25)
--- NOTE | 2019-09-21 06:15 | NUR ---
MS RN NOTES PATIENT ASLEEP IN BED WITH DISTRESS NOTED. CALL LIGHT WITHIN REACH. ALL DUE MEDS GIVEN ORDERED WITH NO ASE NOTED. BRENDAN PICC LINE INTACT AND PATENT. BED IN LOW LOCK SETTING. ROOM FREE OF CLUTTER AND BELONGINGS KEPT NEAR BEDSIDE. WILL ENDORSE TO ONCOMING SHIFT.
[2019-09-21 06:35] LABS: POTASSIUM 3.9 mmol/L (3.5-5.1)
[2019-09-21] MEDS: BLOOD SUGAR DIAGNOSTIC 1 EACH STRIP IN SCH ×5 (07:06→21:23)
[2019-09-21 08:00] VITALS: BP 129/82
[2019-09-21] MEDS: LACTOBACILLUS RHAMNOSUS GG 1 EACH CAP.SPRINK PO SCH ×2 (09:38→17:48)
[2019-09-21] MEDS: DAKINS QUARTER STRENGTH (0.125%) 480 ML BOTTLE TOP SCH (09:38)
[2019-09-21] MEDS: CEFEPIME 1 GM in IV D5W 50 ML IV SCH ×2 (09:38→21:22)
[2019-09-21 16:00] VITALS: BP 130/80
--- NOTE | 2019-09-21 18:54 | NUR ---
MS RN CLOSING NOTES Patient awake and resting in bed. A/O x 4. VS stable with no acute distress. Breathing even and unlabored on room air with no respiratory distress. Denies pain. BRENDAN PICC line clean, intact and patent. Wound dressing clean and intact. Safety precautions in place. Bed locked and set to lowest position with side rails x 2 up. All needs rendered at this time. Call light within reach. Will endorse plan of care to oncoming shift.
[2019-09-21 20:00] VITALS: BP 136/87
--- NOTE | 2019-09-21 20:23 | NUR ---
patient received awake and oriented with vancomycin dose on flow,completed and made hl. desires to go down to smoke.
--- NOTE | 2019-09-21 20:42 | NUR ---
patiemt back from smoking and in bed comfotable
--- NOTE | 2019-09-21 20:52 | NUR ---
refused iv fluids .
--- NOTE | 2019-09-21 22:17 | NUR ---
Dr Lomeli informed that the patient has [id number] at 75ml/hour and patient is diabetic to clarify the orders for ivf and ordered continue iv fluids as is.
[2019-09-22] MEDS: VANCOMYCIN 1 GM in IV D5W 250 ML IV SCH ×2 (05:18→18:27)
[2019-09-22 06:57] LABS: CALCIUM, SERUM 8.7 mg/dL (8.5-10.1); CREATININE 1.1 mg/dL (0.6-1.3); POTASSIUM 3.9 mmol/L (3.5-5.1)
[2019-09-22] MEDS: BLOOD SUGAR DIAGNOSTIC 1 EACH STRIP IN SCH ×3 (07:50→17:30)
--- NOTE | 2019-09-22 07:51 | NUR ---
BLOOD SUGAR CHECKED BUT COVERAGE NOT GIVEN. REPORT GIVEN TO THE DAY SHIFT RN TO GIVEN THE COVERAGE WHEN THE BREAKFAST IN IN
[2019-09-22 08:14] VITALS: BP 122/82
[2019-09-22] MEDS: CEFEPIME 1 GM in IV D5W 50 ML IV SCH (09:48)
[2019-09-22] MEDS: LACTOBACILLUS RHAMNOSUS GG 1 EACH CAP.SPRINK PO SCH ×2 (09:49→18:27)
[2019-09-22] MEDS: DAKINS QUARTER STRENGTH (0.125%) 480 ML BOTTLE TOP SCH (09:49)
[2019-09-22] MEDS: INSULIN REGULAR, HUMAN 100 UNIT/ML 3 ML VIAL SQ PRN ×2 (12:23→18:28)
[2019-09-22 16:51] VITALS: BP 140/86
--- NOTE | 2019-09-22 19:00 | NUR ---
RN MS OPENING NOTES RECEIVED PATIENT IN BED AWAKE ALERT AND ORIENTED X4, RESPIRATIONS EVEN AND UNLABORED WITH EQUAL RISE AND FALL OF CHEST, DENIES ANY PAIN OR DISCOMFORT AT THIS TIME, PICC LINE TO RIGHT UPPER ARM INTACT AND PATENT, NO REDNESS, NO INFILTRATION PRESENT, DRESSING REMAINS CLEAN DRY AND INTACT ALL NEEDS ATTENDED WILL CONTINUE TO MONITOR AND ATTEND TO NEEDS, PATIENT IS SET FOR DISCHARGE TO HOME AWAITING ON OUTSIDE PHARMACY TO DELIVER DISCHARGE MEDICATIONS.WILL CONTINUE TO MONITOR.
[2019-09-22 20:00] VITALS: BP 127/84
--- NOTE | 2019-09-22 20:50 | NUR ---
RN MS DISCHARGE NOTES PATIENT AWAKE ALERT AND ORIENTED X4 ,VERBALLY RESPONSIVE, RESPIRATIONS EVEN AND UNLABORED WITH EQUAL RISE AND FALL OF CHEST, DENIES ANY PAIN OR DISCOMFORT AT THIS TIME, PATIENT PROVIDED WITH DISCHARGE PAPER WORK AND INSTRUCTIONS, VERBALIZED HE UNDERSTANDS DISCHARGE AND FOLLOW UP CARE. BELONGINGS LIST SIGNED,HOMELESS WAIVER SIGNED, PER PATIENT WILL GO TO HIS "[facility]" PRESCRIPTION MEDICATION DELIVERY WAS PROVIDED FOR LEVAQUIN AND ZYVOX, GIVEN TO PATIENT, PRESCRIPTION PROVIDED WITH DISCHARGE PAPER WORK. EDUCATION PROVIDED, MADE AWARE TO FOLLOW UP WITH PRIMARY CARE PHYSICIAN AND PODIATRY AND CONTINUE HOME MEDS ORDERED BY MD. WOUND CARE SUPPLIES PROVIDED, ID BAND REMOVED, AND PICC LINE REMOVED TO RIGHT UPPER ARM , APPLIED PRESSURE NO BLEEDING PRESENT, COVERED WITH DSG. PICC LINE WHEN REMOVED INTACT.
--- NOTE | 2019-09-22 21:11 | NUR ---
RN MS DISCHARGE PATIENT PROVIDED WITH TAP CARD, VERBALIZES UNDERSTAND USE,LEFT IN STABLE CONDITION WITH ALL BELONGINGS.
== END 2019-09-22 21:10 | disposition home or self-care (01) | DRG 314 ==
LOC: ER 12:24 → MED 14:14
PROVIDERS: ADMIT Internal Medicine
DX: T87.43 Infection of amputation stump, right lower extremity (principal); E10.40 Type 1 diabetes mellitus with diabetic neuropathy, unspecified; A48.0 Gas gangrene; E10.621 Type 1 diabetes mellitus with foot ulcer; E10.52 Type 1 diabetes mellitus with diabetic peripheral angiopathy with gangrene; E87.1 Hypo-osmolality and hyponatremia; L03.115 Cellulitis of right lower limb; E10.69 Type 1 diabetes mellitus with other specified complication; M86.8X7 Other osteomyelitis, ankle and foot; E66.9 Obesity, unspecified; Z59.0 Homelessness; Z89.411 Acquired absence of right great toe; F17.210 Nicotine dependence, cigarettes, uncomplicated; Z79.4 Long term (current) use of insulin; Z68.35 Body mass index [BMI] 35.0-35.9, adult; Y83.8 Other surgical procedures as the cause of abnormal reaction of the patient, or of later complication, without mention of misadventure at the time of the procedure; Y92.89 Other specified places as the place of occurrence of the external cause; L97.514 Non-pressure chronic ulcer of other part of right foot with necrosis of bone; E10.65 Type 1 diabetes mellitus with hyperglycemia
CPT/HCPCS: 36415; 36569; 36600; 73630-TC; 73720-TC; 80048-TC; 80053-TC; 80061-TC; 80076-TC; 80202-TC; 82803-TC; 82962-TC; 83605-TC; 83735-TC; 84100-TC; 84484-TC; 85025-TC; 85610-TC; 85652-TC; 85730-TC; 87040-TC; 87070-TC; 87081-TC; 87086-TC; 87186-TC; A6253; A6403; A6407; A9579; C1751; G0378; J0692; J0696; J1815; J3370; J3475; J3490; J7030; J7042; J7060